=== PATIENT | female | born 1980 | race Caucasian/White ===

== ENCOUNTER 2016-08-10 07:04 | Inpatient (IN) | payer OTHER ==
[~2016-08-10] VITALS: Ht 157.5 cm; Wt 80.0 kg
[2016-08-10] VITALS (20 sets, daily range): BP systolic 106–136; BP diastolic 58–78
[~2016-08-10 07:04] MED LIST: Motrin PO; PREFERA-OB P1 TABLET PO; PRENATAL1 EACH PO; Percocet 5/325,Endoc PO; Senokot S,Pericolace PO
[2016-08-10 09:24] LABS: EOSINOPHIL (%) 1.7 % (0-5); EOSINOPHIL COUNT 0.2 K/uL (0-0.3); HEMATOCRIT 36.1 % (36.0-46.0); IMMATURE GRANULOCYTE (%) 0.6 % (0.0-0.7); IMMATURE GRANULOCYTE COUNT 0.1 K/uL; INSTRUMENT ABS NEUTROPHIL CT 6.8 K/uL; MCH 29.5 PG (29.0-34.0); MCHC 32.4 G/DL (30.0-36.0); MCV 90.9 FL (83-99); MEAN PLAT.VOLUME 10.1 uM^3 (9.5-12.4); MONOCYTE (%) 5.9 % (3-12); MONOCYTE COUNT 0.6 K/uL (0-0.8); NEUTROPHIL (%) 71.1 % (45-76); NEUTROPHIL COUNT 6.8 K/uL (1.8-6.4); PLATELET COUNT 204 K/uL (156-360); RBC DIS.WIDTH-CV 13.3 % (11.8-14.6); RBC DIS.WIDTH-SD 44.8 % (39-53); RED BLOOD COUNT 3.97 M/uL (3.80-5.20); WHITE BLOOD COUNT 9.6 K/uL (4.1-10.2)
[2016-08-10] MEDS ORDERED: IBUPROFEN800 MG PO (16:41)
[2016-08-11 08:32] VITALS: BP 118/69
[2016-08-11 15:17] VITALS: BP 119/72
[2016-08-11 22:20] VITALS: BP 119/74
[2016-08-12 15:28] VITALS: BP 126/80
== END 2016-08-12 17:37 | disposition home or self-care (01) | DRG 775 ==
LOC: LDRP-OP 07:04 → 2WEST 07:05 → LDRP-OP 09:44 → 2WEST 16:08 → LDRP-OP 09-11 12:38
PROVIDERS: Nurse Practitioner
PROC: 0KQM0ZZ Repair Perineum Muscle, Open Approach (ICD-10-PCS; principal; 2016-08-10)
PROC: 3E0S3CZ (ICD-10-PCS; principal; 2016-08-10)
PROC: 00HU33Z Insertion of Infusion Device into Spinal Canal, Percutaneous Approach (ICD-10-PCS; principal; 2016-08-10)
PROC: 10907ZC Drainage of Amniotic Fluid, Therapeutic from Products of Conception, Via Natural or Artificial Opening (ICD-10-PCS; principal; 2016-08-10)
PROC: 10E0XZZ Delivery of Products of Conception, External Approach (ICD-10-PCS; principal; 2016-08-10)
PROC: 3E033VJ Introduction of Other Hormone into Peripheral Vein, Percutaneous Approach (ICD-10-PCS; principal; 2016-08-10)
DX: O99.824 Streptococcus B carrier state complicating childbirth (principal); O09.523 Supervision of elderly multigravida, third trimester; Z3A.39 39 weeks gestation of pregnancy; Z37.0 Single live birth; O09.813 Supervision of pregnancy resulting from assisted reproductive technology, third trimester; O69.81X0 Labor and delivery complicated by cord around neck, without compression, not applicable or unspecified; O70.1 Second degree perineal laceration during delivery
CPT/HCPCS: 85025; C1755; J2540; J3010; J7120

== ENCOUNTER 2017-10-27 07:41 | Emergency (ER) | payer OTHER ==
[~2017-10-27 07:41] MED LIST changes: +IBUPROFEN800 MG PO
== END 2017-10-27 10:30 | disposition home or self-care (01) ==
LOC: EME 07:41
DX: S93.402A Sprain of unspecified ligament of left ankle, initial encounter (principal); W19.XXXA Unspecified fall, initial encounter
CPT/HCPCS: 73590; 73610; 99281; 99283; L4350